=== PATIENT | male | born 1945 | race Caucasian/White ===

== ENCOUNTER 2017-03-13 17:03 | Emergency (ER) | payer MEDICARE, OTHER ==
--- NOTE | ~2017-03-13 | HP ---
ADMIT: 03/13/2017 RM/LOC: ANY [facility] MR#: [id number] [address] [facility] [address] [place], [place] [address] [address] [place] [address] Pre-OP History and Physical SEX: M AGE: 71 : 1945 DATE OF SERVICE: 03/13/2017 REASON FOR ADMISSION: Food bolus in esophagus. HISTORY OF PRESENT ILLNESS: This patient is a 71-year-old male, who actually last evening was eating prime rib and felt like got a piece of meat stuck. Tried throughout the day, tried eating role that all came back up. He has tried drink liquids several times. A couple of times thought it was dislodged, but then ends up puking again. At this point, he has had some of this before a kind of long-term symptoms, has reflux, takes over the counter stuff. He is not on any prescribed medicine for GERD or reflux. PAST MEDICAL HISTORY: Significant for hypertension, hypothyroidism, gout, hyperlipidemia, some BPH. He takes lisinopril 20 mg a day, levothyroxine 137 mcg a day, allopurinol 300 mg a day, Lipitor, and Flomax nasal spray. ALLERGIES: NO KNOWN DRUG ALLERGIES. SOCIAL HISTORY: Denies significant tobacco, alcohol, or illicit drugs. FAMILY HISTORY: Noncontributory. PHYSICAL EXAMINATION: GENERAL: He is alert. He is oriented. He is in no significant distress. HEENT: His sclerae are nonicteric. Extraocular muscles are intact. CHEST: Clear anteriorly. HEART: Regular rate and rhythm. ABDOMEN: Soft, positive bowel sounds. No masses or organomegaly detected. No pain to palpation. EXTREMITIES: Without any clubbing, cyanosis, or edema. ASSESSMENT AND PLAN: Planned EGD, removal of food bolus, possible dilatation. Kenn Garrett MD/ alexis JOB #: [id number] CC: Kye Colon, Attending Physician UNKNOWN, Family Physician
--- NOTE | 2017-03-14 17:08 | ER ---
ADMIT: 03/13/2017 RM/LOC: ER [facility] MR#: [id number] [address] [id number] [address] [facility] [address] [place] [address] Emergency Room Report SEX: M AGE: 71 : 1945 DATE: 03/13/2017 HISTORY OF PRESENT ILLNESS: A 71-year-old was eating steak last night when he feels that a piece of meat got lodged in his esophagus. He was seen in the Emergency Department in [facility], where they gave him glucagon, fluids, and still continued to complain of foreign body sensation in his esophagus. Subsequently transferred up here for further evaluation. PHYSICAL EXAMINATION: GENERAL: Reveals a 71-year-old gentleman, in no acute distress. LUNGS: Clear to auscultation. CARDIOVASCULAR: No murmurs, rubs, or gallops. I did give him a sip of water, he was able to hold that, did not spit it up, but felt that it was still hung up in his esophagus. I spoke with Dr. Garrett, who was going to evaluate the patient in the Emergency Department. DIAGNOSIS: Foreign body in the esophagus. Josep Fuentes MD/ alexis JOB #: [id number] CC: Kye Colon MD, Attending Physician
--- NOTE | 2017-03-23 13:27 | OR ---
ADMIT: 03/13/2017 RM/LOC: ANY [facility] MR#: [id number] [address] [facility] [address] [place] [id number] [address] [place] [address] Operative/Delivery Room Report SEX: M AGE: 71 : 1945 SURGERY DATE: 03/13/2017 SURGEON: Kenn Garrett MD PREOPERATIVE DIAGNOSIS: Food bolus in the esophagus and dysphagia. POSTOPERATIVE DIAGNOSES: Food bolus in the esophagus and dysphagia with evidence of some duodenal ulcerations. PROCEDURE: EGD removal of food bolus and biopsies of: 1. The duodenum. 2. The distal esophagus. ANESTHESIA: MAC anesthesia. ESTIMATED BLOOD LOSS: Less than 5 mL. INDICATION FOR PROCEDURE: Please see H and P. DESCRIPTION OF PROCEDURE: After the risks, benefits, possible complications, and the alternatives had been explained, and informed consent had been obtained, the patient was taken back to the procedure room, underwent sedation. The flexible EGD scope was introduced, and you can see in the distal esophagus in picture 1, the meat stuck there. I actually just maneuvering around it, it did pop down and through into the stomach nicely. As you can see in picture 4, I am down into the stomach, retroflex view of the GE junction. Had a fair amount of irritation there, it is mildly narrowed but the scope easily fits through it. He does have about a 4 cm to 5 cm hiatal hernia. I maneuvered through the stomach, down to the second portion of the duodenum, and he had ulcerations there. Secondary to that, I did do some duodenal biopsy to rule out H. pylori. The remainder of the stomach showed no other mass or lesion. You can see the hiatal hernia again in picture 4 on retroflexed view. I then came back up and I had biopsied the distal esophagus. The scope was then removed and the procedure was terminated. Tolerated it well, was taken to recovery room in stable and satisfactory condition. Kenn Garrett MD/ alexis JOB #: [id number] CC: Kye Colon, Attending Physician UNKNOWN, Family Physician
== END 2017-03-13 19:42 | disposition still patient (30) ==
LOC: ER 17:03
PROC: 0DC38ZZ Extirpation of Matter from Lower Esophagus, Via Natural or Artificial Opening Endoscopic (ICD-10-PCS; principal; 2017-03-13)
PROC: 0DB58ZX Excision of Esophagus, Via Natural or Artificial Opening Endoscopic, Diagnostic (ICD-10-PCS; 2017-03-13)
DX: T18.108A Unspecified foreign body in esophagus causing other injury, initial encounter (principal); I10 Essential (primary) hypertension; Z79.899 Other long term (current) drug therapy